=== PATIENT | male | born 1970 | race Caucasian/White ===

== ENCOUNTER 2018-11-10 05:29 | Inpatient (IN) | payer MEDICAID ==
[2018-11-10 05:53] LABS: PLATELET COUNT 266 10^3/uL (150-400)
--- NOTE | 2018-11-10 06:17 | EDPHY ---
H & P Stated Complaint: SOB/CP x5 days Time Seen by Provider: 11/10/18 05:37 HPI/ROS: Chief Complaint: Chest pain, shortness of breath HPI: 48-year-old male with a history of dilated cardiomyopathy, congestive heart failure and chronic methamphetamine abuse is presenting with 5 days of chest pain and shortness of breath. Patient was seen at [facility] several days ago and had a negative workup at that time. Patient is primarily complaining of feeling this sensation of not able to catch his breath while he is falling asleep in his gasping. He did note he had some significant swelling of his ankles and some abdominal distension several days ago. He has been taking his Lasix and limiting his oral fluids and states that the swelling has since calmed down. He is currently homeless residing at the homeless [facility] home. He has had constant substernal chest discomfort for the last 2 days. There are no aggravating or alleviating factors. Patient states he has significant dyspnea on exertion and feel short of breath with just the slightest activity. No cough. No fevers or chills. No nausea or vomiting. Symptoms feel like prior episodes of his congestive heart failure. He has been compliant with his medications. Patient states he has used methamphetamines for about 2 weeks. ROS: 10 systems were reviewed and were negative except those elements noted in the HPI. PMH: Dilated cardiomyopathy with an ejection fraction of 25%, congestive heart failure, methamphetamine Social History: Denies smoking, denies alcohol, denies other drug use Family History: non-contributory Physical Exam: Gen: Awake, Alert, No Distress HEENT: Nose: no rhinorrhea Eyes: PERRLA, EOMI Mouth: Moist mucosa Neck: Supple, no JVD Chest: nontender, lungs clear to auscultation Heart: S1, S2 normal, 2 in 6 murmur Abd: Soft, non-tender, no guarding Back: no CVA tenderness, no midline tenderness Ext: no edema, non-tender Skin: no rash Neuro: CN II-XII intact, Sensation grossly intact, Strength 5/5 in bilateral upper and lower extremities - Personal History Current Tetanus/Diphtheria Vaccine: No - Medical/Surgical History Hx Asthma: No Hx Chronic Respiratory Disease: No Hx Diabetes: No Hx Cardiac Disease: Yes Hx Renal Disease: No Hx Cirrhosis: No Hx Alcoholism: Yes Hx HIV/AIDS: No Hx Splenectomy or Spleen Trauma: No Other PMH: HTN, "cardiac issues" - Social History Smoking Status: Former smoker Constitutional: Initial Vital Signs Temperature (C) 36.8 C 11/10/18 05:36 Heart Rate 102 H 11/10/18 05:36 Respiratory Rate 20 11/10/18 05:36 Blood Pressure 140/108 H 11/10/18 05:36 O2 Sat (%) 98 11/10/18 05:36 O2 Delivery Mode Room Air Allergies/Adverse Reactions: No Known Allergies Allergy (Verified 11/10/18 05:39) Home Medications: Medication Instructions Recorded ALBUTEROL SULFATE 11/10/18 Aspirin 11/10/18 Carvedilol 11/10/18 Furosemide 11/10/18 Lisinopril 11/10/18 Medical Decision Making - Diagnostics EKG Interpretation: ECG time 5:40 a.m., sinus tachycardia with a rate of 106, there is left atrial enlargement, borderline QT interval prolongation. No acute ischemia. ED Course/Re-evaluation: Patient's D-dimer is elevated at 2.0. Will obtain CT angiogram of the chest. ECG shows no acute ischemia. Troponin is normal. I am awaiting his BNP. BNP is 12,000. Patient is in CT now. I have discussed with Dr. Herman, hospitalist. Patient will need to be admitted to the PCU either for diuresis or treatment of a possible thrombus. - Data Points Laboratory Results: Laboratory Results 11/10/18 05:41 11/10/18 05:41 11/10/18 11/10/18 11/10/18 05:45 05:41 05:41 WBC RBC Hgb Hct MCV MCH MCHC RDW Plt Count MPV Neut % (Auto) Lymph % (Auto) Henderson % (Auto) Eos % (Auto) Baso % (Auto) Nucleat RBC Rel Count Absolute Neuts (auto) Absolute Lymphs (auto) Absolute Monos (auto) Absolute Eos (auto) Absolute Basos (auto) Absolute Nucleated RBC Immature Gran % Immature Gran # RBC/WBC/PLT Morphology Platelet Estimate D-Dimer Sodium 135 mEq/L mEq/L (135-145) Potassium 4.8 mEq/L mEq/L (3.5-5.2) Chloride 105 mEq/L mEq/L (97-110) Carbon Dioxide 21 mEq/l L mEq/l (22-31) Anion Gap 9 mEq/L mEq/L (6-14) BUN 16 mg/dL mg/dL (7-23) Creatinine 1.0 mg/dL mg/dL (0.7-1.3) Estimated GFR > 60 Glucose 102 mg/dL H mg/dL (70-100) Calcium 8.6 mg/dL mg/dL (8.5-10.4) POC Troponin I 0.03 ng/mL ng/mL (0.00-0.08) NT-Pro-B Natriuret Pep 27606 pg/mL H pg/mL (0-125) 11/10/18 11/10/18 05:41 05:41 WBC 12.14 10^3/uL H 10^3/uL (3.80-9.50) RBC 4.89 10^6/uL 10^6/uL (4.40-6.38) Hgb 14.8 g/dL g/dL (13.7-17.5) Hct 43.5 % % (40.0-51.0) MCV 89.0 fL fL (81.5-99.8) MCH 30.3 pg pg (27.9-34.1) MCHC 34.0 g/dL g/dL (32.4-36.7) RDW 14.2 % % (11.5-15.2) Plt Count 266 10^3/uL 10^3/uL (150-400) MPV 9.3 fL fL (8.7-11.7) Neut % (Auto) 68.5 % % (39.3-74.2) Lymph % (Auto) 16.0 % % (15.0-45.0) Henderson % (Auto) 13.3 % H % (4.5-13.0) Eos % (Auto) 1.2 % % (0.6-7.6) Baso % (Auto) 0.5 % % (0.3-1.7) Nucleat RBC Rel Count 0.0 % % (0.0-0.2) Absolute Neuts (auto) 8.32 10^3/uL H 10^3/uL (1.70-6.50) Absolute Lymphs (auto) 1.94 10^3/uL 10^3/uL (1.00-3.00) Absolute Monos (auto) 1.61 10^3/uL H 10^3/uL (0.30-0.80) Absolute Eos (auto) 0.15 10^3/uL 10^3/uL (0.03-0.40) Absolute Basos (auto) 0.06 10^3/uL 10^3/uL (0.02-0.10) Absolute Nucleated RBC 0.00 10^3/uL 10^3/uL (0-0.01) Immature Gran % 0.5 % % (0.0-1.1) Immature Gran # 0.06 10^3/uL 10^3/uL (0.00-0.10) RBC/WBC/PLT Morphology TNP Platelet Estimate TNP D-Dimer 2.01 ug/mLFEU H ug/mLFEU (0.00-0.50) Sodium Potassium Chloride Carbon Dioxide Anion Gap BUN Creatinine Estimated GFR Glucose Calcium POC Troponin I NT-Pro-B Natriuret Pep Point of Care Test Results: Chemistry 11/10/18 05:45 POC Troponin I 0.03 ng/mL ng/mL (0.00-0.08) Departure - Departure Disposition: [facility] Inpatient Acute Clinical Impression: Congestive heart failure Condition: Fair Referrals: Patient,NotPresent [Unknown] - As per Instructions
--- NOTE | 2018-11-10 06:22 | CPEKG ---
Test Reason : OPEN Blood Pressure : / mmHG Vent. Rate : 106 BPM Atrial Rate : 106 BPM P-R Int : 123 ms QRS Dur : 097 ms QT Int : 373 ms P-R-T Axes : 082 030 086 degrees QTc Int : 496 ms Sinus tachycardia Left atrial enlargement Abnormal inferior Q waves Borderline prolonged QT interval Confirmed by Meño Mcrae ([id number]) on 11/10/2018 6:21:23 AM Referred By: Meño Mcrae Confirmed By:Meño Mcrae
[2018-11-10] MEDS ORDERED: IOPAMIDOL (ISOVUE 370) 100 ML BTL IV ONE (06:35)
[2018-11-10] MEDS ORDERED: ONDANSETRON 4 MG/2 ML VIAL IVP PRN (06:50)
[2018-11-10] MEDS ORDERED: ONDANSETRON DISINTEGRATING 4 MG TAB PO PRN (06:50)
--- NOTE | 2018-11-10 07:19 | PDGENHP ---
History and Physical - Chief Complaint Shortness of breath, chest pain - History of Present Illness Source-patient provides history is a fair historian. EMR was reviewed and case discussed with ED provider. HPI - this is a pleasant 48-year-old gentleman with past medical history significant for dilated cardiac out myopathy with the last reported EF of 35%, HTN and meth abuse who presents emerged N/C department today with complaints of severe dyspnea on exertion and shortness of breath while at rest. Patient reports that over the past week he has been having increasing difficulties with his breathing. He is feeling significantly fatigued and having trouble sleeping due to PND. Patient also notes that his feet were increasingly swollen and so he is severely restricted his oral hydration and intake. Additionally patient also notes that he is having increasing numbness and tingling in his lower extremities and that he has witnessed his toes "turning a black color and back to white." He has not eaten proximally 5 days by his report. Patient also reports that he has some substernal chest pain as well as some back cramping. He denies any jaw pain neck pain or arm pain. He also reports some subjective fevers and chills. He has not had any cough, sore throat, rhinorrhea. No dysuria hematuria. When asked if he has usual facial flushing he reports this is new. He does endorse some nausea with dry heaves but no vomiting. He also reports that he has had normal bowel movements without any reported diarrhea. Patient also notes some abdominal distention and bloating. Patient reports that he was seen at [facility] for evaluation of his symptoms a few days ago. He reported that he was discharged without any acute findings. History Information - Allergies/Home Medication List Allergies/Adverse Reactions: No Known Allergies Allergy (Verified 11/10/18 05:39) Home Medications: Albuterol [Proventil Inhaler HFA (*)] 1 - 2 puffs IH Q4H PRN 11/10/18 [Last Taken Unknown] Aspirin [Aspirin 81mg (*)] 81 mg PO DAILY 11/10/18 [Last Taken 11/09/18] Carvedilol [Coreg (*)] 6.25 mg PO BIDMEAL 11/10/18 [Last Taken 11/09/18 18:00] Furosemide [Lasix 20 MG (*)] 20 mg PO DAILY 11/10/18 [Last Taken 11/09/18] Lisinopril [Zestril 10 mg (*)] 10 mg PO DAILY 11/10/18 [Last Taken 11/09/18] I have personally reviewed and updated: family history, medical history, social history, surgical history - Past Medical History Additional medical history: Congestive heart failure and dilated cardiomyopathy 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 patient reports his last EF was 35%. Previous available echocardiogram in [facility] notes that EF of 25% 2018. HTN. - Surgical History Additional surgical history: Denies any surgeries. - Family History Additional family history: Father with history hypertension. Denies any coronary artery disease in the family. - Social History Smoking Status: Former smoker Alcohol Use: Sober (Patient with a history of alcohol dependence which he reports sobriety from all drugs and alcohol.) Drug Use: Other (Patient with history of methamphetamine use which he reports he is sober for the past 3 weeks.) Additional social history: Patient is currently homeless. Cor status-full. Review of Systems Review of Systems: ROS: 10pt was reviewed & negative except for what was stated in HPI & below Physical Exam Physical Exam: Temp Pulse Resp BP Pulse Ox 36.8 C 98 18 129/108 H 99 11/10/18 05:36 11/10/18 06:50 11/10/18 06:50 11/10/18 06:50 11/10/18 06:50 Constitutional: appears nourished, uncomfortable, other (Patient appears quite fatigued and acutely ill but nontoxic. His cheeks are flushed. He is slightly tachypneic and tachycardic on monitors at bedside.) Eyes: PERRL, anicteric sclera, EOMI, No scleral injection Ears, Nose, Mouth, Throat: no oral mucosal ulcers, poor dentition, dry mucous membranes, other (No nasal discharge she) Cardiovascular: regular rate and rhythym, systolic murmur, pulses symmetric bilaterally, tachycardia, other (Cap refill greater than 3 sec toes on both feet.) Peripheral Pulses: 1+: dorsalis-pedis (R) (Decreased but palpable), dorsalis- pedis (L) (Decreased but palpable) Respiratory: no rales or rhonchi, clear to auscultation, reduced air movement, other (Patient with some tachypnea with movement and talking. No acute respiratory distress.), No inspiratory crackles, No respiratory distress Gastrointestinal: normoactive bowel sounds, soft, non-tender abdomen, no palpable masses, No ascites, No distension Genitourinary: no bladder tenderness, No ly in urethra Skin: warm, other (Petechiae to medial aspect of both feet the right foot with petechiae under the arch. No splinter hemorrhaging no Osler's nodes. Bilateral facial flushing.) Musculoskeletal: full muscle strength, other (Moves all extremities. Grossly normal strength.) Neurologic: AAOx3, sensation intact bilaterally, numbness (Bilateral feet.), CN II-XII Intact, other (Grossly nonfocal exam.), No facial droop Psychiatric: interacting appropriately, not anxious, not encephalopathic, thought process linear, flat affect, No poor insight, No poor judgement, No poor memory Lab Data & Imaging Review 11/10/18 05:41 11/10/18 05:41 WBC 12.14 10^3/uL (3.80-9.50) H 11/10/18 05:41 RBC 4.89 10^6/uL (4.40-6.38) 11/10/18 05:41 Hgb 14.8 g/dL (13.7-17.5) 11/10/18 05:41 Hct 43.5 % (40.0-51.0) 11/10/18 05:41 MCV 89.0 fL (81.5-99.8) 11/10/18 05:41 MCH 30.3 pg (27.9-34.1) 11/10/18 05:41 MCHC 34.0 g/dL (32.4-36.7) 11/10/18 05:41 RDW 14.2 % (11.5-15.2) 11/10/18 05:41 Plt Count 266 10^3/uL (150-400) 11/10/18 05:41 MPV 9.3 fL (8.7-11.7) 11/10/18 05:41 Neut % (Auto) 68.5 % (39.3-74.2) 11/10/18 05:41 Lymph % (Auto) 16.0 % (15.0-45.0) 11/10/18 05:41 Ray % (Auto) 13.3 % (4.5-13.0) H 11/10/18 05:41 Eos % (Auto) 1.2 % (0.6-7.6) 11/10/18 05:41 Baso % (Auto) 0.5 % (0.3-1.7) 11/10/18 05:41 Nucleat RBC Rel Count 0.0 % (0.0-0.2) 11/10/18 05:41 Absolute Neuts (auto) 8.32 10^3/uL (1.70-6.50) H 11/10/18 05:41 Absolute Lymphs (auto) 1.94 10^3/uL (1.00-3.00) 11/10/18 05:41 Absolute Monos (auto) 1.61 10^3/uL (0.30-0.80) H 11/10/18 05:41 Absolute Eos (auto) 0.15 10^3/uL (0.03-0.40) 11/10/18 05:41 Absolute Basos (auto) 0.06 10^3/uL (0.02-0.10) 11/10/18 05:41 Absolute Nucleated RBC 0.00 10^3/uL (0-0.01) 11/10/18 05:41 Immature Gran % 0.5 % (0.0-1.1) 11/10/18 05:41 Immature Gran # 0.06 10^3/uL (0.00-0.10) 11/10/18 05:41 RBC/WBC/PLT Morphology TNP 11/10/18 05:41 Platelet Estimate TNP 11/10/18 05:41 D-Dimer 2.01 ug/mLFEU (0.00-0.50) H 11/10/18 05:41 Sodium 135 mEq/L (135-145) 11/10/18 05:41 Potassium 4.8 mEq/L (3.5-5.2) 11/10/18 05:41 Chloride 105 mEq/L (97-110) 11/10/18 05:41 Carbon Dioxide 21 mEq/l (22-31) L 11/10/18 05:41 Anion Gap 9 mEq/L (6-14) 11/10/18 05:41 BUN 16 mg/dL (7-23) 11/10/18 05:41 Creatinine 1.0 mg/dL (0.7-1.3) 11/10/18 05:41 Estimated GFR > 60 11/10/18 05:41 Glucose 102 mg/dL (70-100) H 11/10/18 05:41 Calcium 8.6 mg/dL (8.5-10.4) 11/10/18 05:41 POC Troponin I 0.03 ng/mL (0.00-0.08) 11/10/18 05:45 NT-Pro-B Natriuret Pep 83273 pg/mL (0-125) H 11/10/18 05:41 Imaging Review: CTA of the chest was reviewed by myself. Report is still pending. No evidence of central pulmonary embolus. Significant cardiomegaly and dilation. No consolidations. Visualized and Interpreted imaging results: Yes EKG additional interpertation: EKG reviewed myself. Sinus tachycardia in the 100s. Lad. Inferior Q-waves. QTC 496. No acute ST changes. Assessment & Plan Assessment: This is a pleasant 48-year-old gentleman with past medical history significant for dilated cardiac out myopathy with the last reported EF of 35%, HTN and meth abuse who presents emerged N/C department today with complaints of severe dyspnea on exertion and shortness of breath while at rest. Shortness of breath - high suspicion for CHF exacerbation. CT of the chest was obtained. Reviewed myself report still pending do not identify any central PE. Significant cardio megaly in dilation of the chambers. No consolidations appreciated. Acute on chronic systolic Congestive heart failure (Acute) - patient clinically appears dry. His potentially been fluid restricting himself. He does appear to be struggling intermittently with respirations and is tachycardic. Echocardiogram has been ordered. Previously available echo for review from 2018 reveals EF of 25%. Patient reports his last known EF was 35%. BNP is greater than 12,000. Previously documented in [facility] 6000. 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 Patient reports abstinence since 3 weeks ago. Leukocytosis - patient does appear slightly flushed. He is reporting subjective fevers chin chills although he has been afebrile. Will check a lactate, blood cultures as patient does have a murmur on exam. Respiratory PCR panel. Methamphetamine abuse - patient reports remission for 3 weeks. Benign essential hypertension - blood pressures are slightly elevated particularly diastolic. Cautious treatment of hypertension pending repeat echocardiogram. FEN - saline lock IV. Cardiac diet. Fluid restriction. Electrolyte monitoring replacement if needed. PPX-SCDs. Anticoagulation anticipating prophylactic need waiting CTA results patient will require therapeutic dosing if PE is identified. Cor status-full Disposition-patient admitted to observation status on PCU floor for further cardiac workup.
[2018-11-10] MEDS ORDERED: FUROSEMIDE 20 MG/2 ML VIAL IVP ONE (09:11)
--- NOTE | 2018-11-10 09:16 | HOSPPROG ---
Hospitalist Progress Note Assessment/Plan: 48yo M with h/o polysubstance abuse, dilated cardiomyopathy (EF previously 25-30 %) presents with dyspnea and orthopnea. #Acute decompensated systolic CHF: Unclear etiology of CHF - ? meth or cocaine use. - TTE pending - Lasix 20mg IV x1, assess response and re-dose accordingly - Consulted cardiology - Will likely start liza inhibitor, hold on beta mar for now #Chest/epigastric discomfort: Non-ischemic ecg, initial trop negative. Suspect passive congestion of liver/bowel. - Trend trop/ecg - Check LFTs, lipase, liver US #Elevated d-dimer: CTA equivocal for RLL subsegmental PE. D/w radiology and radiographic appearance atypical for PE. Would not explain symptoms. - Will not treat with systemic anticoagulation #Dyspnea without hypoxia: Suspect related to heart failure. #Leukocytosis: Mild. No significant left shift. - Respiratory PCR pending #H/o methamphetamine and cocaine abuse - Utox pending VTE ppx: SCDs Code: full Diet: low salt Dispo: Admit to PCU Subjective: Wanting to sleep. Hasn't slept because he can't breathe when lying flat. Abdomen feels full. Reports chest pain but points to upper abdomen when asks where he hurts. Objective: Vital Signs Temp Pulse Resp BP Pulse Ox 36.6 C 104 H 16 130/92 H 97 11/10/18 09:10 11/10/18 09:10 11/10/18 09:10 11/10/18 09:10 11/10/18 09:10 - Physical Exam Constitutional: no apparent distress, unkempt Eyes: PERRL, anicteric sclera Ears, Nose, Mouth, Throat: moist mucous membranes Cardiovascular: systolic murmur (left sternal border), JVD, tachycardia, No edema Respiratory: no respiratory distress, reduced air movement (bases), No expiratory wheeze, No inspiratory crackles Gastrointestinal: tenderness (epigastric area), distension Genitourinary: no bladder fullness, no bladder tenderness, no renal bruits Skin: no rashes or abrasions, no fluctuance, no induration Musculoskeletal: full muscle strength, no muscle tenderness, normal joint ROM Neurologic: AAOx3, sensation intact bilaterally Psychiatric: interacting appropriately, not anxious, not encephalopathic, thought process linear ICD10 Worksheet Patient Problems: Problems Problem Status Onset Congestive heart failure Acute
[2018-11-10] MEDS: ENOXAPARIN 40 MG/0.4 ML SYR SC SCH (09:58)
[2018-11-10] MEDS ORDERED: HYOSCYAMINE SULFATE 0.125 MG TAB PO ONE (12:21)
[2018-11-10] MEDS ORDERED: LIDOCAINE 2% VISCOUS 15 ML UDCUP PO ONE (12:21)
[2018-11-10] MEDS ORDERED: MAG HYDROX/AL HYDROX/SIMETH 30 ML UDCUP PO ONE (12:21)
--- NOTE | 2018-11-10 12:56 | ECHO ---
[email or web address] [address] Main: [phone] Echocardiography Examination Transthoracic Name: JARRED ARREDONDO MR#: [id number] Study Date: 11/10/2018 Study Time: 09:17 AM Date of : 1970 Age: 48 year(s) Height: 180.3 cm (71 in.) Weight: 79.38 kg (175 lb.) BSA: 1.99 m2 Gender: Male Examination: Echo Contrast: Image Quality: Adequate Rhythm: Heart Rate: BP: 130 mmHg/92 mmHg Indication: chf, Shortness of breath, Dilated Cardiomyopathy Procedure Staff Referring Physician: Sketcher: Erika Aguilar [facility] Reading Physician: Devante Gamez MD Requesting Provider: Indication: chf, Shortness of breath, Dilated Cardiomyopathy Measurements Chambers AV/MV Label Value Normal Value Label Value Normal Value LVOTd 2 cm (1.9cm - 2.1cm) AV PGmax 2 mmHg LVOT VTI 5.37 cm (18cm - 22cm) AV PGmean 2 mmHg LVDd, 2D 5.9 cm (4.2cm - 5.9cm) AV Vmax 0.75 m/s LVDs, 2D 5.6 cm (2.1cm - 4cm) JOHN (VTI) 1.7 cm2 IVSd, 2D 1 cm (0.6cm - 1.1cm) MV E Vmax 0.74 m/s LVPWd, 2D 1.1 cm (0.6cm - 1cm) MV A Vmax 0.38 m/s LVEF, BP 10 % (55% - 70%) MV E/A 1.95 LVEF, 2D 13 % (54% - 74%) MV E/E' lateral 11.3 LVOT PGmean 1 mmHg MV E/E' septal 22.4 (0.5 - 1.7) LVOT Vmean 0.32 m/s MV DT 95 ms RVDd, 2D 4.2 cm (1.9cm - 3.8cm) MV E' septal 0.03 m/s LA Volume, BP 71 ml (18ml - 58ml) MV PHT 0.03 s LADs, 2D 3.4 cm (3cm - 4cm) MVA PHT 8.5 cm2 LAESV index, BP 35.7 ml/m2 MR Reg. Volume 41 ml RA Area 27.1 cm2 MR Vmax 4.75 m/s Additional Vessels MR VTI 124 cm Label Value Normal Value MR (ERO) 0.33 cm2 AoAsc 2.9 cm MV E' lateral 0.07 m/s AoRoot, 2D 3 cm (1.4cm - 2.6cm) MR PISA Radius 0.8 cm IVC 2.1 cm (1.2cm - 2.3cm) MV E/E' mean 14.8 Patient: JARRED ARREDONDO Study Date: 11/10/2018 Page 1 of 3 09:17 AM MR PISBatsheva Meraz V. 38.5 cm/s MV PHT 26 ms MV E' mean 0.05 m/s TV/PV Label Value Normal Value RA Pressure 5 mmHg RVSP 37 mmHg TR Pmax 32 mmHg TR Vmax 2.81 m/s PV PGmax 1 mmHg PV Vmax, Caliper 0.54 m/s (0.6m/s - 0.9m/s) Conclusions 1. The left ventricle is dilated in size. The left ventricular systolic function is severely reduced at 10%. 2. The mitral vlave is normal in structure. There is severe mitral regurgitation. 3. The aortic valve is trileaflet. There is no aortic stenosis. There is trace aortic insufficiency. 4. There is severe tricuspid regurgitation. 5. The pulmonary artery pressure estimate is 37 mmHg. Findings Left Ventricle: Left ventricle is dilated. Severely reduced systolic left ventricular function. The ejection fraction, measured by Simpsons method, is 10 %. Left ventricle wall thickness is normal. Global hypokinesis. Grade II Diastolic Dysfunction. No LV hypertrophy. Right Ventricle: Mildly dilated right ventricle. Left Atrium: The left atrium is mildly dilated. Right Atrium: The right atrium is mildly to moderately dilated. Mitral Valve: Mitral valve appears structurally normal. Severe mitral regurgitation. No mitral valve stenosis. Aortic Valve: Aortic leaflets are structurally normal. Trivial aortic regurgitation is present. There is no aortic stenosis. Tricuspid Valve: Tricuspid valve leaflets are structurally normal. Severe tricuspid regurgitation. No tricuspid valve stenosis. Right Ventricular systolic pressure is measured at 37 mmHg. Pulmonary artery pressure slightly increased. Pulmonic Valve: Pulmonic leaflets are structurally normal. Mild pulmonic valve regurgitation is present. Aorta: The aortic root size in 2D measures 3.0 cm. The ascending aorta measures 2.9 cm. Aorta Measurements AoRoot, 2D is 3.0 cm. IVC: The inferior vena cava is normal in size. Pericardium: No pericardial effusion. Exam Details Procedure Ordered: Echo Procedure Status: Routine study Patient: JARRED ARREDONDO Study Date: 11/10/2018 Page 2 of 3 09:17 AM Image Quality: Adequate Facility Location: Bedside (No Signature Object) Patient: JARRED ARREDONDO Study Date: 11/10/2018 Page 3 of 3 09:17 AM [id number]
--- NOTE | 2018-11-10 13:25 | ASMTCMCOM ---
CM Note CM Note Notes: Pt is a 48 y/o man admitted for shortness of breath and chest pain. Pt has a hx of meth use. Pt has been sober from all substances including etoh for 3 weeks now. Cards has been consulted. Pt will most likely d/c independent when medically stable. No therapies ordered at this time. CM available for changes. Plan: Independent Date Signed: 11/10/2018 01:24 PM Electronically Signed By:RAMESH Shoemaker
--- NOTE | 2018-11-10 15:16 | GCON ---
[f rep st] CONSULTATION DATE OF CONSULTATION: 11/10/2018 CHIEF COMPLAINT: We have been asked by Dr. Lopez to evaluate Mr. Nair with a dilated cardiomyopat hy and congestive heart failure. HISTORY OF PRESENT ILLNESS: Mr. Nair is a 48-year-old gentleman with a history of a dilated cardiomy opathy, who was admitted to the hospital on 11/10/2018, with congestive heart failure. Patient was i n his usual state of health, until approximately 1 week prior to admission, when he began to experien ce symptoms of increased dyspnea on exertion, followed by orthopnea, PND, and lower extremity edema. Patient attributes his decline in symptoms to a cold front that moved in. Patient denies symptoms o f chest pain or palpitations. Patient does have a history of chronic alcohol use. He says he has be en abstinent for 6 months. Patient also has a history of methamphetamine use, and he says he has bee n clean for the last 2 weeks. It is unclear if he has been taking his previous cardiac medications. PAST MEDICAL HISTORY: 1. Dilated cardiomyopathy. 2. History of methamphetamine use/abuse. 3. Alcohol use/abuse. MEDICATIONS: Please see medicine reconciliation form. SOCIAL HISTORY: The patient is currently homeless. He does not smoke. The patient states he has be en sober for 6 months, and has not used methamphetamine for 2 weeks. REVIEW OF SYSTEMS: 10-point review of systems is negative except as noted in the HPI. PHYSICAL EXAMINATION: GENERAL: The patient is resting in bed. He is somewhat somnolent, but respon ds appropriately to questioning. VITAL SIGNS: Temperature is afebrile. Pulse is 94, blood pressure is 130/88, respiratory rate is 20, SaO2 is 93% on room air. HEENT: Normocephalic, atraumatic. Ext raocular muscles intact. NECK: Positive JVD. No bruits. LUNGS: Crackles at the bases bilaterally . CARDIOVASCULAR: Regular rate and rhythm. S1, S2. Grade 3/6 holosystolic murmur is noted at the left sternal border. ABDOMEN: Soft, nontender. Normoactive bowel sounds. No hepatosplenomegaly ap preciated. EXTREMITIES: No clubbing, cyanosis, or edema. NEURO: Patient is somewhat somnolent, bu t does respond appropriately to commands. LABORATORY: White blood cell count is 12.14, hemoglobin is 14.8, hematocrit is 43.5, platelet count is 266. D-dimer is 2.01. Sodium is 135, potassium is 4.8, chloride is 105, CO2 is 21, BUN is 16, cr eatinine is 1.0. Troponin is within normal limits x2. BNP is elevated at 12,100. AST is elevated a t 233, ALT is elevated at 379. EKG demonstrates sinus tachycardia with incomplete right bundle branc h block and left atrial enlargement. Echocardiogram demonstrates severely reduced left ventricular systolic function with an estimated eje ction fraction at 10%. Patient was noted to have severe mitral regurgitation as well as severe tricu spid regurgitation. ASSESSMENT AND PLAN: Mr. Nair is a 48-year-old gentleman with: 1. Cardiomyopathy. The patient has a history of a dilated cardiomyopathy. Much of his previous wor kup had taken place at [facility]. His last known ejection fraction was 25% in October. Will plan on obtaining old records for review. Will plan on initiating therapy with Lasix a nd lisinopril. Would avoid carvedilol at this time given acute decompensation. Consider addition of spironolactone as well. 2. Congestive heart failure. Patient presents with an acute congestive heart failure exacerbation. The precipitating factor is not entirely clear at this time. Patient is currently volume overloaded with a BNP of 12,100. Will initiate therapy with Lasix and lisinopril. Will hold off on beta-block er until he is more stable. /[id number]/MODL
[2018-11-10] MEDS ORDERED: FUROSEMIDE 40 MG/4 ML VIAL IVP ONE (16:43)
[2018-11-10] MEDS ORDERED: ALBUTEROL 60 PUFFS/8 GM MDI IH PRN (16:44)
--- NOTE | 2018-11-10 18:34 | CPEKG ---
Test Reason : OPEN Blood Pressure : / mmHG Vent. Rate : 089 BPM Atrial Rate : 089 BPM P-R Int : 126 ms QRS Dur : 102 ms QT Int : 359 ms P-R-T Axes : 087 020 172 degrees QTc Int : 437 ms Sinus rhythm Right atrial enlargement Consider right ventricular hypertrophy Abnormal inferior Q waves Nonspecific T abnrm, diffuse leads Compared with prior tracing 11/10/2018 at 5:40 change in V2 QRS and lateral TWI Confirmed by Margoth Weaver ([id number]) on 11/10/2018 6:34:25 PM Referred By: Caroline Herman Confirmed By:Margoth Weaver
[2018-11-11 04:25] LABS: PLATELET COUNT 257 10^3/uL (150-400)
[2018-11-11] MEDS: ACETAMINOPHEN 325 MG TAB PO PRN ×2 (06:17→20:07)
--- NOTE | 2018-11-11 08:36 | HOSPPROG ---
Hospitalist Progress Note Assessment/Plan: 48yo M with h/o polysubstance abuse, dilated cardiomyopathy (EF previously 25-30 %) presents with dyspnea and orthopnea found to have worsening EF. #Acute decompensated systolic CHF: LVEF now 10%. - Cards planning on cath in AM - Lasix 40mg IV x1, continue lisinopril 5mg daily - Add coreg - Will need spironolactone before dc #Valvular heart disease: Now with severe MR (previously moderate) and TR. Due to dilated CM. #Chest/epigastric discomfort: Non-ischemic ecg, trop negative. Suspect passive congestion of liver/bowel. #Abnormal LFTs: C/w congestive hepatopathy from CHF. #R GSV superficial thrombophlebitis: No underlying DVT - Repeat doppler US in 1 week #Elevated d-dimer: CTA equivocal for RLL subsegmental PE. D/w radiology and radiographic appearance atypical for PE. Would not explain symptoms. - Will not treat with systemic anticoagulation #Dyspnea without hypoxia: Suspect related to heart failure. #Leukocytosis: Mild. No significant left shift. Respiratory PCR negative. #H/o methamphetamine, cocaine, etoh abuse: Utox and serum ethanol negative VTE ppx: SCDs Code: full Diet: low salt, fluid restrict Dispo: Remain in PCU Subjective: Abdominal swelling better. Able to lie flat. Still with intermittent epigastric pain. Objective: Vital Signs Temp Pulse Resp BP Pulse Ox 36.8 C 97 17 100/94 H 97 11/11/18 03:10 11/11/18 03:10 11/11/18 03:10 11/11/18 06:20 11/11/18 03:10 Microbiology 11/10/18 10:34 Respiratory Panel (PCR) - Final Nasal, Sinus - Swab No Organism Detected By Pcr Laboratory Results 11/11/18 03:12 11/11/18 03:12 11/10/18 11/11/18 11/12/18 05:59 05:59 05:59 Intake Total 1820 Output Total 1950 Balance -130 - Physical Exam Constitutional: no apparent distress, appears nourished, not in pain, unkempt Eyes: PERRL, anicteric sclera, EOMI Ears, Nose, Mouth, Throat: moist mucous membranes, hearing normal, ears appear normal, no oral mucosal ulcers Cardiovascular: regular rate and rhythym, no murmur, rub, or gallop, JVD, No edema Respiratory: no respiratory distress, no rales or rhonchi, clear to auscultation Gastrointestinal: normoactive bowel sounds, soft, non-tender abdomen, no palpable masses, distension Genitourinary: no bladder fullness, no bladder tenderness, no renal bruits Skin: no rashes or abrasions, no fluctuance, no induration Musculoskeletal: full muscle strength, no muscle tenderness, normal joint ROM Neurologic: AAOx3 Psychiatric: interacting appropriately, not anxious, not encephalopathic, thought process linear ICD10 Worksheet Patient Problems: Problems Problem Status Onset Congestive heart failure Acute
--- NOTE | 2018-11-11 09:19 | PDMN ---
Medical Necessity Medical necessity: Change to IP, as of 11/10/18, per MD & MCG M-190; los >2 mn for ongoing management of acute decompensated systolic CHF w/dyspnea, chest/ epigastric discomfort & elevated d-dimer; requiring further workup/monitoring, Cardiology consult & IV diuresis/med management; hx polysubstance abuse, cardiomyopathy
[2018-11-11] MEDS: ENOXAPARIN 40 MG/0.4 ML SYR SC SCH (09:22)
[2018-11-11] MEDS: LISINOPRIL 5 MG TAB PO SCH (09:23)
[2018-11-11] MEDS: ASPIRIN 81 MG CHEWABLE TAB PO SCH (09:23)
[2018-11-11] MEDS: FUROSEMIDE 40 MG/4 ML VIAL IVP SCH (09:24)
[2018-11-11] MEDS: PANTOPRAZOLE SODIUM 40 MG TAB PO SCH (09:24)
--- NOTE | 2018-11-11 12:03 | SOAPPROG ---
CLAUD[facility] Progress Note Assessment/Plan: 1. Cardiomyopathy - Patient has a history of a dilated cardiomyopathy with an EF of 10 %. He has severe MR at this time, however, his valve appears structurally normal and previous echocardiograms demonstrated moderate MR in the setting of his cardiomyopathy. Telemetry monitoring demonstrates no significant arrhythmias that would contribute to his myopathy. Patient has not had an angiogram to exclude CAD as a cause of his myopathy. Pt does have a history of cocaine, amphetamine, and ETOH use potentially contributing. --> Angiogram in am 2. CHF - Pt presents with an acute CHF exacerbation. The precipitating factor(s ) are not entirely clear. Symptoms improved with diuresis. --> Continue lasix and lisinopril --> Start coreg in am --> Consider aldactone Subjective: Dyspnea and edema improved No orthopnea or PND limited ambulation Objective: Vital Signs Temp Pulse Resp BP Pulse Ox 36.8 C 97 17 100/94 H 97 11/11/18 03:10 11/11/18 03:10 11/11/18 03:10 11/11/18 06:20 11/11/18 03:10 Laboratory Results 11/11/18 03:12 11/11/18 03:12 11/10/18 11/11/18 11/12/18 05:59 05:59 05:59 Intake Total 1520 Output Total 1350 Balance 170 Physical Exam - Physical Exam General Appearance: other (somnolent but responds to questions.) Respiratory: crackles Cardiac/Chest: regular rate, rhythm, systolic murmur Abdomen: non-tender, soft Skin: normal color Extremities: No pedal edema ICD10 Worksheet Patient Problems: Problems Problem Status Onset Congestive heart failure Acute
[2018-11-11] MEDS ORDERED: TEMAZEPAM 15 MG CAP PO PRN (12:04)
[2018-11-11] MEDS ORDERED: NITROGLYCERIN 0.4 MG BTL SL PRN (12:04)
[2018-11-11] MEDS ORDERED: SODIUM CL NASAL 45 ML BTL EACHNARE PRN (22:02)
[2018-11-12] MEDS: hydrOXYzine HCL 50 MG TAB PO PRN (01:34)
[2018-11-12 04:42] LABS: PLATELET COUNT 268 10^3/uL (150-400)
[2018-11-12 04:52] LABS: INR 1.21 (0.83-1.16); PROTIME(PATIENT) 14.8 SEC (12.0-15.0)
[2018-11-12] MEDS ORDERED: FAMOTIDINE 20 MG TAB PO ONE ×2 (06:00→06:47)
[2018-11-12] MEDS ORDERED: DIAZEPAM 5 MG TAB PO ONE ×2 (06:00→06:47)
[2018-11-12] MEDS ORDERED: diphenhydrAMINE 25 MG CAP PO ONE ×2 (06:47→10:19)
[2018-11-12] MEDS ORDERED: ASPIRIN EC 325 MG TAB PO ONE ×2 (06:47→10:19)
[2018-11-12] MEDS: ASPIRIN 81 MG CHEWABLE TAB PO SCH (08:20)
[2018-11-12] MEDS: ENOXAPARIN 40 MG/0.4 ML SYR SC SCH ×2 (08:20→17:46)
[2018-11-12] MEDS: LISINOPRIL 5 MG TAB PO SCH (09:50)
[2018-11-12] MEDS: PANTOPRAZOLE SODIUM 40 MG TAB PO SCH (09:50)
[2018-11-12] MEDS ORDERED: IOPAMIDOL (ISOVUE-370) 150 ML BTL IV ONE (10:06)
[2018-11-12] MEDS ORDERED: MIDAZOLAM 2 MG/2 ML VIAL ONE (10:06)
[2018-11-12] MEDS ORDERED: fentaNYL 100 MCG/2 ML INJ ONE (10:06)
[2018-11-12] MEDS ORDERED: LIDOCAINE 1% 300 MG/30 ML SDV ONE (10:06)
[2018-11-12] MEDS ORDERED: FAMOTIDINE 20 MG TAB ONE (10:19)
[2018-11-12] MEDS ORDERED: DIAZEPAM 5 MG TAB ONE (10:20)
--- NOTE | 2018-11-12 10:26 | PDPROPOC ---
Sedation Plan of Care Sedation Plan of Care: vital signs stable, mental status noted, patient educated of risks, benefits, alternatives, patient can tolerate sedation ASA Classification: ASA 2 Planned drugs: fentanyl, midazolam Mallampati Score: Class 2 Mallampati Reference Image: Patient passed 3-3-2 rule?: Yes
--- NOTE | 2018-11-12 11:27 | CPIP ---
[f rep st] INVASIVE CARDIAC PROCEDURE DATE OF PROCEDURE: 11/12/2018 PROCEDURES: 1. Coronary angiography. 2. Left ventriculography. INDICATION: Cardiomyopathy. ACCESS: Patient was prepped and draped in sterile fashion. 1% lidocaine was used to anesthetize the right inguinal region. A 6-Dutch introducer sheath was placed selectively into the right common fe moral artery via modified Seldinger technique. CORONARY ANGIOGRAPHY: A 6-Dutch JL4 was advanced to the left main coronary artery and images obtain ed. The left main coronary artery bifurcated into an LAD and circumflex coronary arteries. The left main coronary artery appeared normal. The left anterior descending coronary artery gave rise to 2 p rominent diagonal branches. The left anterior descending coronary artery and its complement of diago nal branches appeared normal. The circumflex coronary artery is a [id number]-kn-pwvqk sized vessel. T he circumflex coronary artery gave rise to 3 OM branches. The circumflex coronary artery and its com plement of OM branches appeared normal. A 6-Dutch JR4 was advanced to the right coronary artery and images obtained. The right coronary artery was dominant. The right coronary artery appeared normal . LEFT VENTRICULOGRAPHY: A 6-Dutch pigtail catheter was advanced in the left ventricle and images obt ained. Left ventricular end-diastolic pressure was 20 mmHg. The left ventricular systolic function was severely reduced at 10% to 15%. There was evidence of 3+ mitral regurgitation. COMPLICATIONS: None. CONCLUSIONS: 1. Normal coronary arteries. 2. Severely reduced left ventricular systolic function with an estimated ejection fraction of 10% to 15%. /[id number]/MODL
--- NOTE | 2018-11-12 11:34 | HOSPPROG ---
Hospitalist Progress Note Assessment/Plan: 48yo M with h/o polysubstance abuse, dilated cardiomyopathy (EF previously 25-30 %) presents with dyspnea and orthopnea found to have worsening EF. #Acute decompensated systolic CHF: LVEF now 10%. - Clean cors on cath - Give dose of lasix 40mg IV after procedure - Continue lisinopril - Likely start coreg/spironolactone later today or tomorrow - Outpt pall care consult placed given severity of disease #Valvular heart disease: Now with severe MR (previously moderate) and TR. Due to dilated CM. #RUQ/epigastric discomfort: Non-ischemic ecg, trop negative. Improving with diuresis. #Abnormal LFTs: C/w congestive hepatopathy from CHF. #R GSV superficial thrombophlebitis: No underlying DVT - Repeat doppler US in 1 week #Elevated d-dimer: CTA equivocal for RLL subsegmental PE. D/w radiology and radiographic appearance atypical for PE. Would not explain symptoms. - Will not treat with systemic anticoagulation #Dyspnea without hypoxia: Suspect related to heart failure. #Leukocytosis: Mild. No significant left shift. Respiratory PCR negative. #H/o methamphetamine, cocaine, etoh abuse: Utox and serum ethanol negative VTE ppx: LMWH Code: full Diet: low salt, fluid restrict Dispo: Remain in PCU, ADD 1-2 days Subjective: Cor angiography this AM - clean. Overall his symptoms of abdominal distention/epigstaric pain are improving. Breathing ok. Objective: Vital Signs Temp Pulse Resp BP Pulse Ox 36.8 C 93 18 101/76 97 11/12/18 08:32 11/12/18 08:32 11/12/18 08:32 11/12/18 08:32 11/12/18 08:32 Laboratory Results 11/12/18 03:18 11/12/18 03:18 11/11/18 11/12/18 11/13/18 05:59 05:59 05:59 Intake Total 1520 740 Output Total 1350 900 Balance 170 -160 PT 14.8 SEC (12.0-15.0) 11/12/18 03:18 INR 1.21 (0.83-1.16) H 11/12/18 03:18 - Physical Exam Constitutional: no apparent distress, appears nourished, not in pain Eyes: PERRL, anicteric sclera, EOMI Ears, Nose, Mouth, Throat: moist mucous membranes, hearing normal, ears appear normal, no oral mucosal ulcers Cardiovascular: systolic murmur, JVD (improving), tachycardia, No edema Gastrointestinal: normoactive bowel sounds, soft, non-tender abdomen, no palpable masses Genitourinary: no bladder fullness, no bladder tenderness, no renal bruits Skin: no rashes or abrasions, no fluctuance, no induration Musculoskeletal: full muscle strength, no muscle tenderness, normal joint ROM Neurologic: AAOx3, sensation intact bilaterally Psychiatric: interacting appropriately, not anxious, not encephalopathic, thought process linear ICD10 Worksheet Patient Problems: Problems Problem Status Onset Congestive heart failure Acute
--- NOTE | 2018-11-12 15:40 | ASMTCMCOM ---
CM Note CM Note Notes: 11/12/2018 Case Management Note Met w/pt to discuss d/c plan. Confirmed pt has been through coordinated entry. Discussed with Eduardo at detention (direct dial DO NOT SHARE THIS NUMBER: [phone]). Pt can see and RN on Wednesdays at the walk up clinic at the detention staffed by Dr. Bowling from [facility]. Per Eduardo pt will have reserved detention bed. Encouraged pt to utilize community rn case management at the detention to address housing needs. Discussed palliative care with pt. Pt agreeable to meeting with Rell to discuss benefits of program. Per Rell, will coordinate meetings w/pt at [employer], the detention prior to 8 am or other location. Pt has cell phone and is agreeable to meetings. There are no therapy evals ordered for pt at this time. Case Management d/c poc: reserved detention bed with outpatient palliative care. Case Management to follow. Date Signed: 11/12/2018 03:39 PM Electronically Signed By:Em Greene RN
[2018-11-12] MEDS: FUROSEMIDE 40 MG/4 ML VIAL IVP SCH (17:46)
[2018-11-12] MEDS: CARVEDILOL 3.125 MG TAB PO SCH (17:46)
--- NOTE | 2018-11-12 18:28 | SOAPPROG ---
[facility]UD[facility] Progress Note Assessment/Plan: 1. Cardiomyopathy - Patient has a history of a dilated cardiomyopathy with an EF of 10 %. He has severe MR at this time, however, his valve appears structurally normal and previous echocardiograms demonstrated only moderate MR in the setting of his cardiomyopathy. Telemetry monitoring demonstrates no significant arrhythmias that would contribute to his myopathy. Patient has not had an angiogram to exclude CAD as a cause of his myopathy. Pt does have a history of cocaine, amphetamine, and ETOH use potentially contributing. --> Angiogram today 2. CHF - Pt presents with an acute CHF exacerbation. The precipitating factor(s ) are not entirely clear. Symptoms improved with diuresis. --> Continue lasix and lisinopril --> Start coreg --> Consider aldactone on 11/13 Subjective: No chest pain dyspnea improved no orthopnea or PND abd pain last night improved this am. Objective: Vital Signs Temp Pulse Resp BP Pulse Ox 36.8 C 102 H 18 112/75 95 11/12/18 08:32 11/12/18 15:10 11/12/18 15:10 11/12/18 15:00 11/12/18 15:10 Laboratory Results 11/12/18 03:18 11/12/18 03:18 11/11/18 11/12/18 11/13/18 05:59 05:59 05:59 Intake Total 1520 740 350 Output Total 1350 900 Balance 170 -160 350 PT 14.8 SEC (12.0-15.0) 11/12/18 03:18 INR 1.21 (0.83-1.16) H 11/12/18 03:18 Physical Exam - Physical Exam General Appearance: alert, no apparent distress Respiratory: lungs clear Cardiac/Chest: regular rate, rhythm Extremities: No pedal edema Neuro/Psych: alert, oriented x 3 ICD10 Worksheet Patient Problems: Problems Problem Status Onset Congestive heart failure Acute
[2018-11-13] MEDS: hydrOXYzine HCL 50 MG TAB PO PRN ×2 (00:24→23:14)
[2018-11-13] MEDS ORDERED: FUROSEMIDE 40 MG/4 ML VIAL IVP SCH (09:00)
--- NOTE | 2018-11-13 09:42 | PDCARPN ---
Cardiology Progress Note Assessment/Plan: Assessment/plan: 48 yo M with past hx if NICMP (previous care at [facility]) and polysubstance abuse (EtOH and meth). Admitted 11/10 with decompensated CHF, abnl LFTs. Echo with LVEF 10% and severe MR, severe TR. Cath 11/12 without CAD. LVEDP 20. Clinically improved with diuresis of 8 kg. On coreg, lisinopril (was taking the coreg and lisinopril outpt) 1. Acute on chronic systolic CHF: NYHA II now. Etiology likely etoH/meth. Change to oral lasix. Add aldactone. Continue coreg and lisinopril, plan to uptitrate as tolerated. Should be enrolled in CHF transitional care with follow up with Dr. Zuniga. Check BNP tomorrow. 2. Valvular disease: severe MR and TR; likely functional due to CMP. Will need close serial follow up 3. Abnl LFTs: likely congestive. Repeat LFTs tomorrow. 4. HTN: normotensive here 5. EtoH/meth: reports abstinence for months from EtOH and 2-3 weeks from meth. Emphasized import of continued abstinence from all alcohol and drug 6. Homelessness: complicates care. Hospital medicine and case management working on solutions 11/13/18 09:56 Subjective: Feels better. LE edema resolved. No CP. SOB improved. Intermittent PND Time Spent with Patient: greater than 25 minutes Time Spent with Patient: Greater than 25 minutes spent on this patients care, greater than 50% of time spent counseling, educating, and coordinating care regarding the above mentioned plan. Objective: Vital Signs (8 Hrs) Temp Pulse Resp BP Pulse Ox 11/13/18 08:00 35.9 C L 96 16 109/79 95 11/13/18 04:00 36.8 C 93 14 95/65 L 94 Intake/Output (24 Hrs) 11/12/18 11/13/18 11/14/18 05:59 05:59 05:59 Intake Total 740 2100 Output Total 900 Balance -160 2100 Intake: Oral (ml) 740 2000 IV Intake (ml) 0 100 Output: Urine (ml) 900 Urinal 900 Other: Weight 71.1 kg Intake Quantity Yes Yes Sufficient NAD JVP <10 RRR soft holosystolic murmur apex. No rub or gallop No LE edema Result Diagrams: 11/12/18 03:18 11/13/18 03:14 Cardiac Labs: Cardiac Lab Results (72 Hrs) 11/11/18 03:12 Troponin I 0.024 EKG: Reviewed x 2: SR, IRBBB. Diffuse T abnl Telemetry: NSR ICD10 Worksheet Patient Problems: Problems Problem Status Onset Congestive heart failure Acute
[2018-11-13] MEDS: PANTOPRAZOLE SODIUM 40 MG TAB PO SCH (09:56)
[2018-11-13] MEDS: CARVEDILOL 3.125 MG TAB PO SCH ×2 (09:56→16:35)
[2018-11-13] MEDS: ASPIRIN 81 MG CHEWABLE TAB PO SCH (09:56)
[2018-11-13] MEDS: ENOXAPARIN 40 MG/0.4 ML SYR SC SCH (09:59)
[2018-11-13] MEDS: LISINOPRIL 5 MG TAB PO SCH (10:00)
[2018-11-13] MEDS: FUROSEMIDE 40 MG TAB PO SCH (10:08)
[2018-11-13] MEDS: SPIRONOLACTONE 25 MG TAB PO SCH (10:08)
--- NOTE | 2018-11-13 10:33 | HOSPPROG ---
Hospitalist Progress Note Assessment/Plan: 48yo M with h/o polysubstance abuse, dilated cardiomyopathy (EF previously 25-30 %) presents with dyspnea and orthopnea found to have worsened EF. #Acute decompensated systolic CHF: LVEF now 10%. Cors clean. - Switching to PO lasix - Continue coreg, lisinopril - uptitrate as able - Added spironolactone today - Outpt pall care consult placed given severity of disease #Valvular heart disease: Now with severe MR (previously moderate) and TR. Due to dilated CM. #RUQ/epigastric discomfort: Non-ischemic ecg, trop negative. Resolved with diuresis. #Abnormal LFTs: C/w congestive hepatopathy from CHF. #R GSV superficial thrombophlebitis: No underlying DVT - Repeat doppler US in 1 week (11/17) #Elevated d-dimer: CTA equivocal for RLL subsegmental PE. D/w radiology and radiographic appearance not typical for PE. - Will not treat with systemic anticoagulation #Dyspnea without hypoxia: Resolved. Suspect related to heart failure. #Leukocytosis: Mild. No significant left shift. Respiratory PCR negative. #H/o methamphetamine, cocaine, etoh abuse: Utox and serum ethanol negative #Homelessness: CM aware. ? respite bed. VTE ppx: LMWH Code: full Diet: low salt, fluid restrict Dispo: Remain in PCU, ADD 1-2 days Subjective: Epigastric/RUQ pain resolved. No leg swelling. No chest pain. Objective: Vital Signs Temp Pulse Resp BP Pulse Ox 35.9 C L 102 H 16 109/79 95 11/13/18 08:00 11/13/18 09:56 11/13/18 08:00 11/13/18 08:00 11/13/18 08:00 Laboratory Results 11/12/18 03:18 11/13/18 03:14 11/12/18 11/13/18 11/14/18 05:59 05:59 05:59 Intake Total 740 2100 Output Total 900 Balance -160 2100 PT 14.8 SEC (12.0-15.0) 11/12/18 03:18 INR 1.21 (0.83-1.16) H 11/12/18 03:18 - Physical Exam Constitutional: no apparent distress, appears nourished, not in pain Eyes: PERRL, anicteric sclera, EOMI Ears, Nose, Mouth, Throat: moist mucous membranes, hearing normal, ears appear normal, no oral mucosal ulcers Cardiovascular: regular rate and rhythym, no murmur, rub, or gallop, JVD ( almost resolved), No edema Respiratory: no respiratory distress, no rales or rhonchi, clear to auscultation Gastrointestinal: normoactive bowel sounds, soft, non-tender abdomen, no palpable masses Genitourinary: no bladder fullness, no bladder tenderness, no renal bruits Skin: no rashes or abrasions, no fluctuance, no induration Musculoskeletal: full muscle strength, no muscle tenderness, normal joint ROM Neurologic: AAOx3, sensation intact bilaterally Psychiatric: interacting appropriately, not anxious, not encephalopathic, thought process linear ICD10 Worksheet Patient Problems: Problems Problem Status Onset Congestive heart failure Acute
--- NOTE | 2018-11-13 11:55 | ASMTCMCOM ---
CM Note CM Note Notes: Pt tested postive for having bed bugs. CM left multiple messages at the [facility] to notify them of this issue. CM to follow. Date Signed: 11/13/2018 11:54 AM Electronically Signed By:RAMESH Clark
[2018-11-13] MEDS: ACETAMINOPHEN 325 MG TAB PO PRN (20:00)
[2018-11-13] MEDS: NICOTINE 14 MG/24 HR PATCH TD SCH (20:00)
[2018-11-14] MEDS: CARVEDILOL 3.125 MG TAB PO SCH ×2 (09:01→18:21)
[2018-11-14] MEDS: ENOXAPARIN 40 MG/0.4 ML SYR SC SCH (09:01)
[2018-11-14] MEDS: ASPIRIN 81 MG CHEWABLE TAB PO SCH (09:01)
[2018-11-14] MEDS: LISINOPRIL 5 MG TAB PO SCH (09:01)
[2018-11-14] MEDS: FUROSEMIDE 40 MG TAB PO SCH (09:02)
[2018-11-14] MEDS: SPIRONOLACTONE 25 MG TAB PO SCH (09:02)
[2018-11-14] MEDS: PANTOPRAZOLE SODIUM 40 MG TAB PO SCH (09:02)
[2018-11-14] MEDS: NICOTINE 14 MG/24 HR PATCH TD SCH (09:02)
--- NOTE | 2018-11-14 09:16 | PDCARPN ---
Cardiology Progress Note Assessment/Plan: Assessment/plan: 48 yo M with past hx of NICMP (previous care at [facility]) and polysubstance abuse (EtOH and meth). Admitted 11/10 with decompensated CHF, abnl LFTs. Echo with LVEF 10% and severe MR, severe TR. Cath 11/12 without CAD. LVEDP 20. Clinically improved with diuresis of 9 kg. BNP improved from 12,100 on admission to 1910 on November 14. 1. Acute on chronic systolic CHF: NYHA II now. Appears euvolemic. Etiology likely etoH/meth. Transitioned to once daily oral Lasix on 11/13. Added aldactone on 11/13. Continue coreg and lisinopril, plan to uptitrate as tolerated. Should be enrolled in CHF transitional care with follow up with Dr. Zuniga. 2. Valvular disease: severe MR and TR; likely functional due to CMP. Will need close serial follow up 3. Abnl LFTs: likely congestive. LFTs much better on 11/14. 4. HTN: normotensive here 5. EtoH/meth: reports abstinence for months from EtOH and 2-3 weeks from meth. Emphasized import of continued abstinence from all alcohol and drug. Also needs to be abstinent from chewing tobacco. 6. Homelessness: complicates care. Hospital medicine and case management working on solutions 11/14/18 09:38 Subjective: Reports feeling quite a bit better. Still mildly dyspneic with activity. Some positional lightheadedness. No palpitations. No syncope. Brief episodes of chest pain that are not predictable Reviewed/Discussed With: multidisciplinary team Objective: Vital Signs (8 Hrs) Temp Pulse Resp BP Pulse Ox 11/14/18 08:00 36.7 C 82 16 115/79 96 11/14/18 04:00 103/72 Intake/Output (24 Hrs) 11/13/18 11/14/18 11/15/18 05:59 05:59 05:59 Intake Total 2100 500 Balance 2100 500 Intake: Oral (ml) 2000 500 IV Intake (ml) 100 Other: Weight 70.1 kg Intake Quantity Yes Sufficient No acute distress. Sitting up in bed JVP less than 10. Regular rate and rhythm without murmur or gallop Lungs clear bilaterally wheeze rhonchi rales No lower extremity edema Result Diagrams: 11/12/18 03:18 11/14/18 03:14 Cardiac Labs: Cardiac Lab Results (72 Hrs) 11/11/18 03:12 Troponin I 0.024 Telemetry: Sinus rhythm ICD10 Worksheet Patient Problems: Problems Problem Status Onset Congestive heart failure Acute
--- NOTE | 2018-11-14 11:35 | HOSPPROG ---
Hospitalist Progress Note Assessment/Plan: 48yo M with h/o polysubstance abuse, dilated cardiomyopathy (EF previously 25-30 %) presents with dyspnea and orthopnea found to have worsened EF. #Acute decompensated systolic CHF: LVEF now 10-15%. Cors clean. - Switched to PO lasix - Continue coreg, lisinopril - uptitrate as able - Added spironolactone - Outpt pall care consult placed given severity of disease - patient declined [facility] services #Valvular heart disease: Now with severe MR (previously moderate) and TR. Due to dilated CM. #RUQ/epigastric discomfort: Non-ischemic ecg, trop negative. Resolved with diuresis. #Abnormal LFTs: Improved. C/w congestive hepatopathy from CHF. #R GSV superficial thrombophlebitis: No underlying DVT - Repeat doppler US in 1 week (11/17) - would do prior to dc #Elevated d-dimer: CTA equivocal for RLL subsegmental PE. D/w radiology and radiographic appearance not typical for PE. - Will not treat with systemic anticoagulation #Dyspnea without hypoxia: Resolved. Suspect related to heart failure. #Leukocytosis: Mild. No significant left shift. Respiratory PCR negative. #H/o methamphetamine, cocaine, etoh abuse: Utox and serum ethanol negative #Homelessness: CM aware. Patient's plan is to now fly to [place] after dc to live with mother (his mother plans to pay for this). He doesn't have an ID. Case management is trying to get him set up with clinic appointments in [place]. VTE ppx: LMWH Code: full Diet: low salt, fluid restrict Dispo: Remain in PCU, ADD next few days Subjective: Some dizziness with standing. No chest pain or leg swelling. Now planning on flying out to [place] to live with mother after hospital discharge. Objective: Vital Signs Temp Pulse Resp BP Pulse Ox 36.7 C 88 14 105/73 99 11/14/18 11:28 11/14/18 11:28 11/14/18 11:28 11/14/18 11:28 11/14/18 11:28 Laboratory Results 11/12/18 03:18 11/14/18 03:14 11/13/18 11/14/18 11/15/18 05:59 05:59 05:59 Intake Total 2100 500 Balance 2100 500 PT 14.8 SEC (12.0-15.0) 11/12/18 03:18 INR 1.21 (0.83-1.16) H 11/12/18 03:18 - Physical Exam Constitutional: no apparent distress, appears nourished, not in pain Eyes: PERRL, anicteric sclera, EOMI Ears, Nose, Mouth, Throat: moist mucous membranes, hearing normal, ears appear normal, no oral mucosal ulcers Cardiovascular: regular rate and rhythym, systolic murmur, No JVD, No edema Respiratory: no respiratory distress, no rales or rhonchi, clear to auscultation Gastrointestinal: normoactive bowel sounds, soft, non-tender abdomen, no palpable masses Genitourinary: no bladder fullness, no bladder tenderness, no renal bruits Skin: no rashes or abrasions, no fluctuance, no induration Musculoskeletal: full muscle strength, no muscle tenderness, normal joint ROM Neurologic: AAOx3, sensation intact bilaterally Psychiatric: interacting appropriately, not anxious, not encephalopathic, thought process linear ICD10 Worksheet Patient Problems: Problems Problem Status Onset Congestive heart failure Acute
--- NOTE | 2018-11-14 11:48 | ASMTCMCOM ---
CM Note CM Note Notes: CM met with pt. He says that he doesn't want to go back to the [facility] and said that his mom is going to help him get a plane ticket so he can stay with her in [place] after he is discharged from the hospital. Pt reports he has no money and his identification card is . CM provided him with phone number for [employer] so he can check which forms of identification he will need to fly. Rell met with pt yesterday and pt refused linkage with them. CM to follow. Plan:TBD Date Signed: 11/14/2018 11:47 AM Electronically Signed By:RAMESH Clark
[2018-11-14] MEDS ORDERED: CARBOXYMETHYLCELLULOSE 0.5% 0.4 ML DROPERETTE EACHEYE PRN (12:08)
[2018-11-15] MEDS: hydrOXYzine HCL 50 MG TAB PO PRN (03:14)
[2018-11-15] MEDS: LISINOPRIL 5 MG TAB PO SCH (07:46)
[2018-11-15] MEDS: FUROSEMIDE 40 MG TAB PO SCH (07:46)
[2018-11-15] MEDS: NICOTINE 14 MG/24 HR PATCH TD SCH (07:46)
[2018-11-15] MEDS: PANTOPRAZOLE SODIUM 40 MG TAB PO SCH (07:46)
[2018-11-15] MEDS: ASPIRIN 81 MG CHEWABLE TAB PO SCH (07:46)
[2018-11-15] MEDS: CARVEDILOL 3.125 MG TAB PO SCH (07:46)
[2018-11-15] MEDS: ENOXAPARIN 40 MG/0.4 ML SYR SC SCH (07:46)
[2018-11-15] MEDS: ACETAMINOPHEN 325 MG TAB PO PRN (07:46)
[2018-11-15] MEDS: SPIRONOLACTONE 25 MG TAB PO SCH (07:46)
--- NOTE | 2018-11-15 12:33 | HOSPPROG ---
Hospitalist Progress Note Assessment/Plan: 48yo M with h/o polysubstance abuse, dilated cardiomyopathy (EF previously 25-30 %) presents with dyspnea and orthopnea found to have worsened EF. #Acute decompensated systolic CHF / NICM: LVEF now 10-15%. Thought 2/2 meth abuse. Cors clean. Wt down 7 kg since admission. - Cont Lasix, Aldactone - Continue coreg, lisinopril - uptitrate as able - Outpt pall care consult placed given severity of disease - patient declined [facility] - outpt f/u with Dr. Zuniga in HF clinic #Valvular heart disease: Now with severe MR (previously moderate) and TR. Due to dilated CM. #Diaphoresis: could be 2/2 BP meds. No fevers or infectious symptoms. Dizzy with ambulation -check orthostatics #Abnormal LFTs: C/w congestive hepatopathy, improved #R GSV superficial thrombophlebitis: No underlying DVT - Repeat doppler US prior in am #Elevated d-dimer: CTA equivocal for RLL subsegmental PE. D/w radiology and radiographic appearance not typical for PE. - Defer anticoagulation #H/o methamphetamine, cocaine, etoh abuse: Utox and serum ethanol negative #Homelessness: was going to fly home to [place] to stay with his mom, but she is declining this now (his brother just from complications of AIDS). VTE ppx: LMWH Code: full Diet: low salt, fluid restrict Dispo: Remain in PCU, ADD tomorrow, may have to dc to halfway. CM to assist with housing resources. Subjective: Pt feels sweaty, gets dizzy with ambulation. No CP or SOB. No fevers or cough. Taking po well. Good uop. He is worried abt returning to halfway due to witnessing substance abuse there as he is trying to stay clean. Objective: Vital Signs Temp Pulse Resp BP Pulse Ox 36.7 C 88 14 103/85 H 98 11/15/18 07:23 11/15/18 07:23 11/15/18 07:23 11/15/18 07:23 11/15/18 07:23 Laboratory Results 11/12/18 03:18 11/15/18 03:15 11/14/18 11/15/18 11/16/18 05:59 05:59 05:59 Intake Total 500 1575 Balance 500 1575 PT 14.8 SEC (12.0-15.0) 11/12/18 03:18 INR 1.21 (0.83-1.16) H 11/12/18 03:18 - Physical Exam Constitutional: no apparent distress Eyes: PERRL Ears, Nose, Mouth, Throat: moist mucous membranes Cardiovascular: regular rate and rhythym Respiratory: no respiratory distress, clear to auscultation Gastrointestinal: normoactive bowel sounds, soft, non-tender abdomen Skin: warm Musculoskeletal: full muscle strength Neurologic: AAOx3 Psychiatric: interacting appropriately ICD10 Worksheet Patient Problems: Problems Problem Status Onset Congestive heart failure Acute
--- NOTE | 2018-11-15 12:55 | SOAPPROG ---
SOAP Progress Note Assessment/Plan: Assessment: CHF consultation performed and dictated. 48 y/o man reports was diagnosed with CHF LVEF 25% at [facility] in 2018 and given prescription for Coreg. Never followed up with a coupling machine operator. Admitted here 11/10/18 with acute on chronic systolic CHF with LVEF now 10% with severe MR and TR. Cardiac cath this hospitalization showed no CAD with LVEDP 20mmHg. He complains of sharp CP, fevers and chills and short of breath. On my physical exam appears euvolemic and telemetry without NSVT. Last report methamphetamine use three weeks ago. REC: 1)increase Coreg ot 6.25mg PO BID 2)rest of meds without changes. Appears euvolemic. 3)offered out-pt follow up in [facility] in 5-7 days from day of discharge. 4)No Life Vest or AICD needed currently. With cessation of ETOH and Meth use and on CHF meds, his LVEF could improve quickly. Thanks. 11/15/18 12:51 Objective: Vital Signs Temp Pulse Resp BP Pulse Ox 36.7 C 88 14 103/85 H 98 11/15/18 07:23 11/15/18 07:23 11/15/18 07:23 11/15/18 07:23 11/15/18 07:23 Laboratory Results 11/12/18 03:18 11/15/18 03:15 11/14/18 11/15/18 11/16/18 05:59 05:59 05:59 Intake Total 500 1575 Balance 500 1575 PT 14.8 SEC (12.0-15.0) 11/12/18 03:18 INR 1.21 (0.83-1.16) H 11/12/18 03:18 ICD10 Worksheet Patient Problems: Problems Problem Status Onset Congestive heart failure Acute
--- NOTE | 2018-11-15 15:09 | GCON ---
[f rep st] CONSULTATION CHF CONSULT DATE OF CONSULTATION: 11/15/2018 REASON FOR CONSULTATION: Evaluate gentleman with acute on chronic nonischemic cardiomyopathy and rec ommend future CHF management. HISTORY OF PRESENT ILLNESS: I was asked by Dr. Margoth Weaver to consult for the above reasons. The pat cas is a 48-year-old homeless gentleman who reports that he first developed known heart problems a y ear ago when he was admitted to [facility] and his ejection fraction was 25%. He was given a prescription for carvedilol, but has not seen a facing baster jumpbasting until this hospitalization. He continue d to use alcohol and methamphetamines until about 3 weeks ago. He was admitted 5 days ago with acute CHF. An echo done this hospitalization demonstrates an LVEF of 10% with an LVEDD of 6.9 cm, and mil d right ventricular enlargement with severe mitral and tricuspid insufficiency and trivial aortic ins ufficiency. A left heart catheterization done on 11/12/2018 demonstrated normal coronary arteries wi th no obstructive coronary artery disease with an LVEF of 13% and an LVEDP of 20. He reports he stil l has sharp chest pain and feels he is having fevers and chills. He can walk around the room, but re ports this makes him short of breath. He is a rather positive historian. PAST MEDICAL HISTORY: 1. Chronic nonischemic systolic heart failure with an LVEF of 10%. 2. Hypertension. 3. Methamphetamine addiction. 4. Alcohol abuse. PAST SURGICAL HISTORY: None. CURRENT MEDICATIONS: Aspirin 81 mg per day, Coreg 3.125 mg twice daily, Lasix 40 mg daily, lisinopri l 5 mg per day, Aldactone 25 mg per day. ALLERGIES: No known drug allergies. SOCIAL HISTORY: The patient reports his last alcohol and methamphetamine use was about 3 weeks ago. He is currently homeless. FAMILY HISTORY: Unremarkable for premature coronary artery disease. REVIEW OF SYSTEMS: The patient reports no TIA or CVA symptoms. He has no GI bleed symptoms such as hematemesis, melena, or bright red blood per rectum. Rest of 10-point review of systems is negative. PHYSICAL EXAM: VITAL SIGNS: Afebrile, pulse 88 and regular, blood pressure 103/85, respirations 22, room air 98%. Weight 72.5 kg. GENERAL: A normal-appearing gentleman in no acute distress without chest pain or using accessory respiratory muscles. EYES : Pupils equal, reactive to light. ENT: Or al mucosa with no cyanosis. NECK: Jugular venous pressure to 7 cm. Carotid pulses 2+ bilaterally w ith no obvious bruits. No thyromegaly noted. LUNGS: Clear to auscultation bilaterally without rale s, rhonchi, or wheezing. HEART: Normal PMI. Regular rate and rhythm, with 2/6 nonradiating systoli c murmur and no S3. ABDOMEN: Soft and nontender. No guarding or rebound. No obvious ascites. EXT REMITIES: 2+ peripheral pulses including femoral and pedal pulses. No edema noted. MUSCULOSKELETAL : No scoliosis. NEURO: Normal affect and mood. SKIN: No bleeding or cyanosis. NECK: No nuchal rigidity. EKG: Normal sinus rhythm with right ventricular hypertrophy and T-wave inversions laterally, and nor mal QRS at 102 milliseconds. LABS: Sodium 136, potassium 5.1, chloride 96, bicarb 31, BUN 20, creatinine 1.0, glucose 70. NT pro BNP level 1910. Hematocrit 49. INR 1.21. IMPRESSION AND RECOMMENDATIONS: A 48-year-old gentleman with chronic nonischemic systolic heart fail ure with an LVEF of 10% and severe mitral and tricuspid insufficiency with class 3 [facility] symptoms, probably secondary to chronic methamphetamine and alcohol toxins. Despite having chest pain and shortness of breath, he appears relatively compensated today. I do not think he is wade ving angina or pulmonary edema. PLAN: 1. Would increase his Coreg to 6.25 mg twice daily. 2. Rest of medications without change. 3. Discussed with him at length that if he could stop alcohol and methamphetamine use, and on medici tenzin, there is a good chance his heart would recover in strength. 4. Do not think he needs a LifeVest or AICD currently. 5. Offered him close followup in the [facility] 5-7 days after he is discharged from [facility]. /[id number]/MODL
[2018-11-15] MEDS: CARVEDILOL 6.25 MG TAB PO SCH (16:58)
[2018-11-16 09:22] VITALS: BP 105/82
[2018-11-16] MEDS: CARVEDILOL 6.25 MG TAB PO SCH (09:37)
[2018-11-16] MEDS: ENOXAPARIN 40 MG/0.4 ML SYR SC SCH (09:37)
[2018-11-16] MEDS: ASPIRIN 81 MG CHEWABLE TAB PO SCH (09:37)
[2018-11-16] MEDS: PANTOPRAZOLE SODIUM 40 MG TAB PO SCH (09:37)
[2018-11-16] MEDS: LISINOPRIL 5 MG TAB PO SCH (09:37)
[2018-11-16] MEDS: FUROSEMIDE 40 MG TAB PO SCH (09:37)
[2018-11-16] MEDS: SPIRONOLACTONE 25 MG TAB PO SCH (09:37)
[2018-11-16] MEDS: NICOTINE 14 MG/24 HR PATCH TD SCH (09:40)
--- NOTE | 2018-11-16 09:42 | ASMTCMCOM ---
CM Note CM Note Notes: It was passed on in report that his Mom can no longer afford to fly him back home to [place] due to an unexpected of his brother. CM met w/ pt for dispo planning. Pt reports that he did cocaine 15 years ago and etoh 4 years ago. Pt reports that the meth use was 2 1/2 weeks ago. Pt plans on getting sober. Pt allowed C to call his mother Kenia (P#: [phone]). CM called Kenia and left a ms for a call back. Pt reports that he has been homeless for the last year. Pt reports that he stopped working due to his heart. Pt reports that he has been trying to apply for disability. Pt reports that he was denied disability and recently got a last inserter to assist. Pt reports that his Mom lives in [place], [place]. Pt reports that he has been in [place] for 25 years. CM discussed case w/ Neetu. Date Signed: 11/16/2018 09:31 AM Electronically Signed By:RAMESH Shoemaker
[2018-11-16] MEDS: hydrOXYzine HCL 50 MG TAB PO PRN (10:19)
--- NOTE | 2018-11-16 13:09 | ASMTLACE ---
LACE Length of stay for Answers: 4-6 days current admission Acuity / Level of Answers: Yes Care: Did the patient have an inpatient admission? Comorbidities - select Answers: Congestive heart failure all that apply # of Emergency department Answers: 1-2 visits in the last 6 months Social determinants Answers: History of substance abuse (ETOH, street drugs, prescription drugs, etc.) Score: 13 Date Signed: 11/16/2018 01:09 PM Electronically Signed By:RAMESH Shoemaker
--- NOTE | 2018-11-16 14:27 | ASMTDCNOTE ---
Case Management Discharge Discharge Order Complete? Answers: Yes Patient to Obtain Answers: Independently Medications Transportation Arranged Answers: Bus Tokens EMTALA Complete Answers: No Case Management Transport Answers: No Form Complete Faxed Final Orders Answers: Yes Agency/Facility Transfer Answers: Yes Report Printed & Faxed to Receiving Agency Family Notified Answers: Yes Discharge Comments Notes: Pts case discussed w/ Dr. uBstos and Neetu, java manager. Pt does not medically need to be in the hospital any longer. CM spoke to pts Mom on speaker phone in pts room. Pts Mom is unable to have him at her house at this time. Pt reports that he could stay at the [facility] in [place]. Neetu is not approving a bus pass to go [facility]. Pt is asking if he can stay in the [facility]. CM spoke to Eduardo, the director at the [facility]. When pt went through coordinated entry, pt was identified as a [facility] client, therefore unable to stay at the [facility]. He ended up agreeable to staying at the [facility]. CM made a reservation for him. CM spoke to pts brother on the phone. Pts brother is local but unable to house him at this time. CM provided pt w/ clothing from donation closet. Referral [facility] to [facility]. CM made pt an appointment w/ [facility]. CM provided pt w/ a bus pass. No other needs at this time. CM avaialble for changes. Plan: Independent Please follow up with: [facility] Purvi Navas 11/18/18 10:45AM [facility] [place] [id number] Bring photo ID, insurance card, co pay, list of all meds and discharge paperwork. Date Signed: 11/16/2018 02:27 PM Electronically Signed By:RAMESH Shoemaker
--- NOTE | 2018-11-16 14:28 | ASDISCHSUM ---
Discharge Information Plan Status:Homeless/[facility] Medically Cleared to Leave:11/16/2018 Discharge Date:11/16/2018 CM D/C Disposition: ADT D/C Disposition:Home, Routine, Self-Care Projected Discharge Date:11/16/2018 11:00 AM Transportation at D/C: Discharge Delay Reason: Follow-Up Date:11/16/2018 11:00 AM Discharge Slot: Final Diagnosis: Placement Information Referral Type:Palliative Care Referral ID:[id number] Provider Name: Address 1: Phone Number: Address 2: Fax Number: City: Selection Factors: State: Patient Contact Information Contact Name:ELODIA Relationship:Father Address:[address] Work Phone: City:[place] [facility] Phone: State/[facility] Code:[place] [id number] Email: Financial Information Financial Class:Medicaid Primary Plan Desc:[employer] [place] [place] Primary Plan Number:[id number] Secondary Plan Desc: Secondary Plan Number: Assessment Information [facility] CM Progress Note CM Note CM Note Notes: Pt is a 48 y/o man admitted for shortness of breath and chest pain. Pt has a hx of meth use. Pt has been sober from all substances including etoh for 3 weeks now. Cards has been consulted. Pt will most likely d/c independent when medically stable. No therapies ordered at this time. CM available for changes. Plan: Independent Date Signed: 11/10/2018 01:24 PM Electronically Signed By:RAMESH Shoemaker LACE LACE Length of stay for Answers: 4-6 days current admission Acuity / Level of Answers: Yes Care: Did the patient have an inpatient admission? Comorbidities - select Answers: Congestive heart failure all that apply # of Emergency department Answers: 1-2 visits in the last 6 months Social determinants Answers: History of substance abuse (ETOH, street drugs, prescription drugs, etc.) Score: 13 Date Signed: 11/16/2018 01:09 PM Electronically Signed By:RAMESH Shoemaker [facility] CM Progress Note CM Note CM Note Notes: 11/12/2018 Case Management Note Met w/pt to discuss d/c plan. Confirmed pt has been through coordinated entry. Discussed with Eduardo at jail (direct dial DO NOT SHARE THIS NUMBER: [phone]). Pt can see MD and RN on Wednesdays at the walk up clinic at the jail staffed by Dr. Bowling from [facility]. Per Eduardo pt will have reserved jail bed. Encouraged pt to utilize community case specialist at the jail to address housing needs. Discussed palliative care with pt. Pt agreeable to meeting with Rell to discuss benefits of program. Per Rell, will coordinate meetings w/pt at [facility], the jail prior to 8 am or other location. Pt has cell phone and is agreeable to meetings. There are no therapy evals ordered for pt at this time. Case Management d/c poc: reserved jail bed with outpatient palliative care. Case Management to follow. Date Signed: 11/12/2018 03:39 PM Electronically Signed By:Em Greene RN [facility] CM Progress Note CM Note CM Note Notes: Pt tested postive for having bed bugs. CM left multiple messages at the [facility] to notify them of this issue. CM to follow. Date Signed: 11/13/2018 11:54 AM Electronically Signed By:RAMESH Clark [facility] [place] Progress Note CM Note CM Note Notes: CM met with pt. He says that he doesn't want to go back to the jail and said that his mom is going to help him get a plane ticket so he can stay with her in [place] after he is discharged from the hospital. Pt reports he has no money and his identification card is . CM provided him with phone number for [facility] so he can check which forms of identification he will need to fly. eRll met with pt yesterday and pt refused linkage with them. CM to follow. Plan:TBD Date Signed: 11/14/2018 11:47 AM Electronically Signed By:RAMESH Clark [facility] [place] Progress Note MALLORIE Note M[place] Note Notes: It was passed on in report that his Mom can no longer afford to fly him back home to [place] due to an unexpected of his brother. MALLORIE met w/ pt for dispo planning. Pt reports that he did cocaine 15 years ago and etoh 4 years ago. Pt reports that the meth use was 2 1/2 weeks ago. Pt plans on getting sober. Pt allowed C to call his mother Kenia (P#: [phone]). CM called Kenia and left a msg for a call back. Pt reports that he has been homeless for the last year. Pt reports that he stopped working due to his heart. Pt reports that he has been trying to apply for disability. Pt reports that he was denied disability and recently got a director of student aid to assist. Pt reports that his Mom lives in [place], [place]. Pt reports that he has been in [place] for 25 years. MALLORIE discussed case w/ Neetu. Date Signed: 11/16/2018 09:31 AM Electronically Signed By:RAMESH Shoemaker Case Management Discharge Plan Note Case Management Discharge Discharge Order Complete? Answers: Yes Patient to Obtain Answers: Independently Medications Transportation Arranged Answers: Bus Tokens EMTALA Complete Answers: No Case Management Transport Answers: No Form Complete Faxed Final Orders Answers: Yes Agency/Facility Transfer Answers: Yes Report Printed & Faxed to Receiving Agency Family Notified Answers: Yes Discharge Comments Notes: Pts case discussed w/ Dr. Bustos and Neetu, risk and insurance manager. Pt does not medically need to be in the hospital any longer. CM spoke to pts Mom on speaker phone in pts room. Pts Mom is unable to have him at her house at this time. Pt reports that he could stay at the [facility] in [place]. [place]u [place] not approving [place] bus [place]. Pt is asking if he can stay in the [facility]. CM spoke to Eduardo, the director at the [facility]. When pt went through coordinated entry, pt was identified as a [facility] client, therefore unable to stay at the [facility]. He ended up agreeable to staying at the [facility]. MALLORIE made a reservation for him. MALLORIE spoke to pts brother on the phone. Pts brother is local but unable to house him at this time. CM provided pt w/ clothing from donation closet. Referral made to [facility]. CM made pt an appointment w/ [facility]. CM provided pt w/ a bus pass. No other needs at this time. CM avaialble for changes. Plan: Independent Please follow up with: [facility] Purvi Navas 11/18/18 10:45AM [facility] [place] [phone] Bring photo ID, insurance card, co pay, list of all meds and discharge paperwork. Date Signed: 11/16/2018 02:27 PM Electronically Signed By:RAMESH Shoemaker Intervention Information
--- NOTE | 2018-11-16 20:34 | GDS ---
[f rep st] DISCHARGE SUMMARY DISCHARGE DIAGNOSES: 1. Acute systolic heart failure. 2. Nonischemic cardiomyopathy with ejection fraction of 10% to 15%. 3. Methamphetamine abuse. 4. Valvular heart disease with severe mitral regurgitation and tricuspid regurgitation thought secon mackenzie to dilated cardiomyopathy. 5. Abnormal liver function tests, likely secondary to congestive hepatopathy, improved. 6. Superficial thrombophlebitis. 7. Homelessness. CONSULTANTS: 1. Dr. Devante Gamez, cardiology. 2. Dr. Daniel Zuniga, cardiology. HISTORY OF DETAILS: Please see history and physical dated November 10, 2018. In brief, the patient is a 48-year-old homeless male with a history of methamphetamine abuse and cardiomyopathy with a last re ported ejection fraction of 35%, who presented to the emergency department with shortness of breath a nd chest pain. He was found to be in acute heart failure and was admitted for further management. HOSPITAL COURSE: Patient admitted to the med/surg unit. He received diuresis with IV Lasix. Echoca rdiogram revealed his ejection fraction has decreased from 35% to 10% to 15%. He underwent a heart c atheterization which showed clean coronary arteries. He diuresed over 7 kg and is continued on Lasix and Aldactone at discharge. In addition, he was started on Coreg and lisinopril. He was found to h ave a right greater saphenous vein superficial thrombophlebitis on a lower extremity ultrasound on Ap ril 17. There was no evidence of DVT. He could undergo repeat lower extremity ultrasound in the out patient setting to ensure this has not progressed. On the day of discharge, he is hemodynamically st able with blood pressure of 105/82, heart rate 85, respiratory rate 18, and he is saturating in the 9 0s on room air. DISPOSITION: [facility] in [facility] condition. He may attempt to r eturn home to [place] to stay with his mom. DISCHARGE MEDICATIONS: Please see [facility] for completed outpatient medication list. New medications on discharge include: Lasix 40 mg p.o. daily, #30, no refills. Lisinopril 5 mg p.o. daily, #30, no refills. Spironolactone 25 mg p.o. daily, #30, no refills. He will continue all other outpatient medications as previously prescribed including: Aspirin 81 mg p.o. daily. Albuterol inhaler. Vistaril 50 to 100 mg p.o. b.i.d. p.r.n. Sucralfate 1 g p.o. q.i.d. Omeprazole 20 mg p.o. daily. Coreg 6.25 mg p.o. b.i.d. for which he was given a prescription, #60, no refills. /[id number]/MODL
== END 2018-11-16 15:17 | disposition home or self-care (01) | DRG 192 ==
LOC: EDUNIT# → F2W 08:51 → OBSVTOIN 16:43
PROVIDERS: ADMIT Family Medicine; ATTEND Family Medicine
PROC: B2151ZZ Fluoroscopy of Left Heart using Low Osmolar Contrast (ICD-10-PCS; principal; 2018-11-12)
PROC: 4A023N7 Measurement of Cardiac Sampling and Pressure, Left Heart, Percutaneous Approach (ICD-10-PCS; principal; 2018-11-12)
PROC: B2111ZZ Fluoroscopy of Multiple Coronary Arteries using Low Osmolar Contrast (ICD-10-PCS; principal; 2018-11-12)
DX: I11.0 Hypertensive heart disease with heart failure (principal); I50.23 Acute on chronic systolic (congestive) heart failure; I42.0 Dilated cardiomyopathy; K76.1 Chronic passive congestion of liver; D72.829 Elevated white blood cell count, unspecified; I80.3 Phlebitis and thrombophlebitis of lower extremities, unspecified; F15.10 Other stimulant abuse, uncomplicated; I08.1 Rheumatic disorders of both mitral and tricuspid valves; Z59.0 Homelessness; Z87.891 Personal history of nicotine dependence
CPT/HCPCS: 84484-ER; G0480; J1644; J1650; J1940; J2250; J3010; Q9967